=== PATIENT | female | born 1960 | race Caucasian/White ===

== ENCOUNTER 2024-05-27 18:02 | Inpatient (IN) ==
[2024-05-27 18:35] LABS: ABS Monocytes 1.3 10^3/uL (0.0-0.9); ABS Neutrophils 18.1 10^3/uL (1.5-7.6); ABS Nucleated RBC 0.01 10^3/ul; Hematocrit 45.2 % (35-45); Hemoglobin 15.1 g/dL (11.5-14.3); Lymphocyte % 5.1 %; Mean Corpuscular Hemoglobin 28.1 pg (27-33); Mean Corpuscular Hgb Conc 33.4 g/dL (31-36); Mean Corpuscular Volume 84.2 fL (80-97); Mean Platelet Volume 8.6 fL (7.5-11.2); Platelet Count 219 10^3/uL (150-450); Red Blood Count 5.37 10^6/uL (3.63-4.92); White Blood Count 20.5 10^3/uL (3.8-11.8)
[2024-05-27 18:47] LABS: Activated Partial Thrombo Time 28.3 seconds (26.0-38.0); INR 1.05 (0.85-1.14)
[2024-05-27] MEDS ORDERED: niCARdipine 0.1MG/ML IVPREMIX 20 MG/200 ML BAG IV ONE (18:56)
[2024-05-27] MEDS: niCARdipine 0.1MG/ML IVPREMIX 20 MG/200 ML BAG IV SCH (19:01)
[2024-05-27 19:22] LABS: Albumin 4.4 g/dL (3.2-5.2); Albumin/Globulin Ratio 1.5 (1-3); Creatinine, Serum 1.95 mg/dL (0.51-0.95); Direct Bilirubin 0.2 mg/dL (0.03-0.18); Indirect Bilirubin 1.2 mg/dL (0.3-1.0); Potassium 4.1 mmol/L (3.5-5.0); Total Bilirubin 1.4 mg/dL (0.2-1.0); Total Protein 7.4 g/dL (6.4-8.9); eGFR CKD-EPI 28.1 (>60)
[2024-05-27] MEDS: Piperacillin/Tazobac 3.375 BAG 3.375 GM/100 ML BAG IV ONE (19:59)
[2024-05-27 20:02] LABS: TSH Ultra Thyroid Stim Horm 1.36 mcIU/mL (0.34-5.60)
[2024-05-27 20:04] LABS: Free T4 1.09 ng/dL (0.61-1.12)
[2024-05-27 20:27] LABS: Urine Appearance Turbid; Urine Bacteria Absent /HPF (Absent); Urine Bilirubin Negative (Negative); Urine Blood 3+ (Negative); Urine Color Yellow; Urine Glucose Trace (Negative); Urine Ketones Negative (Negative); Urine Nitrite Negative (Negative); Urine Protein 3+ (>=300 mg/dL) (Negative); Urine Red Blood Cell 3+(>10/hpf) /HPF (0-Trace); Urine Specific Gravity >1.050 (1.002-1.030); Urine Urobilinogen Negative (Negative); Urine White Blood Cell 2+(11-20/hpf) /HPF (0-Trace)
[2024-05-27 20:42] LABS: CRP High Sensitivity 51.17 mg/L (<2.00)
[2024-05-27] MEDS: Vancomycin 2,000 MG in NS 0.9% 500 ml BAG 500 ML IVPB ONE (21:01)
[2024-05-27] MEDS: Lactated Ringers 1000 ml BAG 1,000 ML IV ONE (21:06)
[2024-05-27] MEDS: Hyaluronidase HUMAN 15 UNIT in Sodium Chloride 0.9% 0.9 ML INTRADERM ONE (22:02)
[2024-05-27 22:10] LABS: Prolactin 10.9 ng/mL (1.0-25.0)
[2024-05-27] MEDS ORDERED: Sulfur Hexaflouride MICROSPHR 25 MG VIAL IV PRN (22:33)
[2024-05-27] MEDS ORDERED: Albuterol HFA INHALER 8 gm MDI INH PRN (22:40)
[2024-05-27 23:53] LABS: Folate 5.95 ng/mL (5.90-24.80)
[2024-05-28] MEDS: Heparin 5000 UNITS/ML 1 mL VIAL SUBCUT SCH (01:01)
[2024-05-28] MEDS: Propofol 10 mg/ml 100 ML BTL 1,000 MG/100 ML BTL IV SCH (01:50)
[2024-05-28] MEDS ORDERED: cefTRIAXone 2 GM ADDV.VIAL 2 GM in NS 0.9% 100 ml BAG 100 ML IV SCH (02:06)
[2024-05-28] MEDS: Propofol 10 mg/ml 100 ML BTL 1,000 MG/100 ML BTL ONE (02:10)
[2024-05-28] MEDS: LORazepam 2 mg VIAL 1 ml ONE (02:11)
[2024-05-28] MEDS: Rocuronium 50 mg VIAL 10 mg/ml 5 ml VIAL (50 mg) ONE (02:13)
[2024-05-28] MEDS: Succinylcholine 200 mg VIAL 20 mg/ml 10 ml VIAL (200 mg) ONE (02:13)
[2024-05-28] MEDS: Succinylcholine 200 mg VIAL 20 mg/ml 10 ml VIAL (200 mg) IV ONE (02:14)
[2024-05-28] MEDS: Etomidate 20 mg/10 ml 2 MG/ML 10 ml VIAL IV ONE (02:14)
[2024-05-28] MEDS ORDERED: Lorazepam PYXIS KEY PRN (02:26)
[2024-05-28] MEDS: LORazepam 2 mg VIAL 1 ml IV PUSH ONE ×2 (02:30→04:05)
[2024-05-28 02:44] LABS: PCO2 Arterial 31 mmHg (35-45); PO2 Arterial 87 mmHg (80-100)
[2024-05-28] MEDS: Ampicillin ADVAN 2 GM in NS 0.9% 100 ml BAG 100 ML IVPB SCH (02:59)
[2024-05-28] MEDS ORDERED: Vancomycin per Pharmacy 1 EA NOTE FOLLOW UP SCH (03:00)
[2024-05-28] MEDS: Chlorhexidine MOUTHWASH 0.12% 15 ML UDC TOPICAL SCH (03:03)
[2024-05-28 03:05] LABS: Urine Benzodiazepine Screen None Detected (None Detect); Urine Cannabinoids Screen None Detected (None Detect); Urine Opiates Screen None Detected (None Detect)
[2024-05-28] MEDS: cefTRIAXone 2 gm/50 mL D5W 2 GM/50 ML BAG IV SCH (03:12)
[2024-05-28 03:15] LABS: Calcium 8.7 mg/dL (8.6-10.3); Creatinine, Serum 2.03 mg/dL (0.51-0.95); Magnesium 2.1 mg/dL (1.9-2.7); Phosphorus 3.5 mg/dL (2.5-5.0); Potassium 3.8 mmol/L (3.5-5.0); eGFR CKD-EPI 26.7 (>60)
[2024-05-28 03:43] LABS: Hematocrit 38.5 % (35-45); Hemoglobin 12.7 g/dL (11.5-14.3); Mean Platelet Volume 9.4 fL (7.5-11.2); Platelet Count 206 10^3/uL (150-450); Red Blood Count 4.52 10^6/uL (3.63-4.92); White Blood Count 23.3 10^3/uL (3.8-11.8)
[2024-05-28 04:12] LABS: ABS Lymphocytes 0.7 10^3/uL (1.0-4.8); ABS Neutrophils 21.7 10^3/uL (1.5-7.6); ABS Nucleated RBC 0.01 10^3/ul
[2024-05-28] MEDS: Lactated Ringers 1000 ml BAG 1,000 ML IV ONE (04:27)
[2024-05-28 05:56] LABS: ABS Lymphocytes 0.9 10^3/uL (1.0-4.8); ABS Monocytes 1.2 10^3/uL (0.0-0.9); ABS Neutrophils 16.9 10^3/uL (1.5-7.6); Hematocrit 37.9 % (35-45); Hemoglobin 12.5 g/dL (11.5-14.3); Lymphocyte % 4.6 %; Mean Corpuscular Hemoglobin 27.9 pg (27-33); Mean Corpuscular Hgb Conc 32.9 g/dL (31-36); Mean Corpuscular Volume 84.8 fL (80-97); Mean Platelet Volume 8.9 fL (7.5-11.2); Platelet Count 161 10^3/uL (150-450); Red Blood Count 4.47 10^6/uL (3.63-4.92); Red Cell Distribution Width 15.1 % (12-17)
[2024-05-28 06:34] LABS: Calcium 8.5 mg/dL (8.6-10.3); Creatinine, Serum 1.79 mg/dL (0.51-0.95); Phosphorus 3.1 mg/dL (2.5-5.0); Potassium 3.4 mmol/L (3.5-5.0); eGFR CKD-EPI 31.1 (>60)
[2024-05-28] MEDS: Potassium Chloride LIQUID 20 MEQ/15 ML LIQUID NG TUBE ONE (08:10)
[2024-05-28] MEDS: Pantoprazole VIAL 40 MG VIAL IV SCH (08:10)
[2024-05-28] MEDS ORDERED: cefTRIAXone 1 gm/50 mL D5W 1 GM/50 ML BAG IV SCH (09:00)
[2024-05-28] MEDS: Acyclovir IV 600 MG in NS 0.9% 250 ml 250 ML IVPB SCH (09:05)
[2024-05-28] MEDS: fentaNYL 100 mcg/2 ml 50 MCG/ML VIAL IV SLOW PU PRN (09:45)
[2024-05-28] MEDS: Norepinephrine 4 MG/250mL D5W 4,000 MCG/250 ML BAG IV ONE (11:37)
[2024-05-28] MEDS: levETIRAcetam 1000MG IVPREMIX 1,000 MG/100 ML BAG IVPB SCH (12:51)
[2024-05-28] MEDS: Heparin DRIP 25,000 UNITS BAG 25,000 UNITS/250 ML BAG IV SCH (13:47)
[2024-05-28] MEDS: Lactated Ringers 1000 ml BAG 1,000 ML IV SCH (16:24)
[2024-05-28] MEDS: Vancomycin 1000 MG in NS 0.9% 250 ML IVPB SCH (18:29)
[2024-05-29] MEDS: Lactated Ringers 1000 ml BAG 1,000 ML IV SCH (03:28)
[2024-05-29 04:40] LABS: ABS Eosinophils 0.1 10^3/uL (0.0-0.5); ABS Lymphocytes 1.2 10^3/uL (1.0-4.8); ABS Monocytes 1.1 10^3/uL (0.0-0.9); ABS Neutrophils 12.8 10^3/uL (1.5-7.6); ABS Nucleated RBC 0.01 10^3/ul; Eosinophil % 0.7 %; Hemoglobin 9.2 g/dL (11.5-14.3); Lymphocyte % 7.8 %; Mean Corpuscular Hemoglobin 28.4 pg (27-33); Mean Corpuscular Hgb Conc 32.9 g/dL (31-36); Mean Corpuscular Volume 86.4 fL (80-97); Mean Platelet Volume 9.2 fL (7.5-11.2); Nucleated Red Blood Cells % 0.1 %/100WBC (0.0-0.8); Platelet Count 119 10^3/uL (150-450); Red Blood Count 3.24 10^6/uL (3.63-4.92); Red Cell Distribution Width 15.5 % (12-17); White Blood Count 15.2 10^3/uL (3.8-11.8)
[2024-05-29 04:54] LABS: Calcium 7.6 mg/dL (8.6-10.3); Creatinine, Serum 1.62 mg/dL (0.51-0.95); Magnesium 1.8 mg/dL (1.9-2.7); Potassium 3.3 mmol/L (3.5-5.0)
[2024-05-29] MEDS: Magnesium Sulfate 2 gm BAG 2 GM/50 ML BAG IVPB ONE (12:03)
[2024-05-29] MEDS: KCL 20 MEQ/100 ML IVPREMIX 20 MEQ/100 ML BAG IV SCH (12:09)
[2024-05-29 15:23] LABS: Hemoglobin 9.2 g/dL (11.5-14.3); Red Blood Count 3.04 10^6/uL (3.63-4.92); White Blood Count 14.4 10^3/uL (3.8-11.8)
[2024-05-29 15:24] LABS: Hematocrit 25.8 % (35-45); Mean Corpuscular Hemoglobin 30.3 pg (27-33); Mean Corpuscular Hgb Conc 35.8 g/dL (31-36); Mean Corpuscular Volume 84.7 fL (80-97); Mean Platelet Volume 9.5 fL (7.5-11.2); Platelet Count 126 10^3/uL (150-450); Red Cell Distribution Width 15.1 % (12-17)
[2024-05-29] MEDS: Furosemide 40 mg/4 ml IV VIAL IV SLOW PU ONE (15:43)
[2024-05-29] MEDS: Labetalol IV 5 MG/ML 20 ml VIAL IV PUSH ONE (19:52)
[2024-05-29] MEDS: Bacitracin OINTMENT TUBE TOPICAL PRN (23:56)
[2024-05-30 05:11] LABS: ABS Basophils 0.1 10^3/uL (0.0-0.1); ABS Eosinophils 0.3 10^3/uL (0.0-0.5); ABS Lymphocytes 1.1 10^3/uL (1.0-4.8); ABS Monocytes 0.6 10^3/uL (0.0-0.9); ABS Neutrophils 8.7 10^3/uL (1.5-7.6); Hematocrit 27.2 % (35-45); Hemoglobin 9.3 g/dL (11.5-14.3); Lymphocyte % 9.8 %; Mean Corpuscular Hemoglobin 29.1 pg (27-33); Mean Corpuscular Volume 85.5 fL (80-97); Platelet Count 128 10^3/uL (150-450); Red Blood Count 3.18 10^6/uL (3.63-4.92); Red Cell Distribution Width 15.2 % (12-17); White Blood Count 10.8 10^3/uL (3.8-11.8)
[2024-05-30 05:30] LABS: Anion Gap 8 mmol/L (2-16); Blood Urea Nitrogen 22 mg/dL (6-24); CO2 Carbon Dioxide 27 mmol/L (22-32); Calcium 8.1 mg/dL (8.6-10.3); Chloride 103 mmol/L (101-111); Creatinine, Serum 1.57 mg/dL (0.51-0.95); Glucose 187 mg/dL (70-100); Magnesium 2.2 mg/dL (1.9-2.7); Sodium 138 mmol/L (135-145); eGFR CKD-EPI 36.4 (>60)
[2024-05-30 05:54] LABS: Potassium, Whole Blood 3.2 mmol/L (3.4-4.5)
[2024-05-30 08:04] LABS: ALT 9 U/L (7-52); Albumin 2.9 g/dL (3.2-5.2); Albumin/Globulin Ratio 1.1 (1-3); Alkaline Phosphatase 55 U/L (35-149); Globulin 2.7 g/dL (2-4); Total Bilirubin 0.3 mg/dL (0.2-1.0); Total Protein 5.6 g/dL (6.4-8.9)
[2024-05-30] MEDS: KCL 10 MEQ/50 ML IVPREMIX 10 MEQ/50 ML BAG IV SCH (09:29)
[2024-05-30] MEDS: Furosemide 40 mg/4 ml IV VIAL IV SLOW PU ONE (12:33)
[2024-05-30] MEDS: Potassium Chloride LIQUID 20 MEQ/15 ML LIQUID PO ONE (12:41)
[2024-05-30 17:26] LABS: Anion Gap 10 mmol/L (2-16); Blood Urea Nitrogen 21 mg/dL (6-24); CO2 Carbon Dioxide 24 mmol/L (22-32); Calcium 7.8 mg/dL (8.6-10.3); Chloride 103 mmol/L (101-111); Creatinine, Serum 1.56 mg/dL (0.51-0.95); Glucose 151 mg/dL (70-100); Sodium 137 mmol/L (135-145); Vancomycin Trough 15.4 mcg/mL; eGFR CKD-EPI 36.7 (>60)
[2024-05-30] MEDS: Vancomycin Trough Check NOTE FOLLOW UP ONE (18:15)
[2024-05-30 21:46] LABS: Direct Bilirubin Redraw 0.1 mg/dL (0.1-0.5); Magnesium 2.1 mg/dL (1.9-2.7)
[2024-05-30 21:55] LABS: Vancomycin Trough 38.6 mcg/mL
[2024-05-30] MEDS: fentaNYL INFUSION 50 mcg/mL VL 2,500 MCG/50 ML VIAL IV SCH (23:14)
[2024-05-31] MEDS: fentaNYL INFUSION 50 mcg/mL VL 2,500 MCG/50 ML VIAL IV SCH (00:03)
[2024-05-31] MEDS: hydrALAZINE 20 mg/ml 1 ML Vial IV IV SLOW PU PRN (03:03)
[2024-05-31 06:42] LABS: ABS Eosinophils 0.4 10^3/uL (0.0-0.5); ABS Lymphocytes 0.9 10^3/uL (1.0-4.8); ABS Monocytes 0.6 10^3/uL (0.0-0.9); Eosinophil % 4.6 %; Hematocrit 24.8 % (35-45); Hemoglobin 8.6 g/dL (11.5-14.3); Lymphocyte % 11.8 %; Mean Corpuscular Hemoglobin 29.6 pg (27-33); Mean Corpuscular Hgb Conc 34.6 g/dL (31-36); Mean Corpuscular Volume 85.5 fL (80-97); Mean Platelet Volume 9.4 fL (7.5-11.2); Nucleated Red Blood Cells % 0.1 %/100WBC (0.0-0.8); Platelet Count 123 10^3/uL (150-450); Red Blood Count 2.91 10^6/uL (3.63-4.92); Red Cell Distribution Width 15.1 % (12-17); White Blood Count 7.9 10^3/uL (3.8-11.8)
[2024-05-31 07:43] LABS: Calcium 7.7 mg/dL (8.6-10.3); Creatinine, Serum 1.5 mg/dL (0.51-0.95); Potassium 3.8 mmol/L (3.5-5.0); eGFR CKD-EPI 38.4 (>60)
[2024-05-31] MEDS: Furosemide 20 mg/2 ml IV VIAL IV SLOW PU ONE ×2 (11:48→18:10)
[2024-05-31] MEDS: Iodixanol 320 (CONTRAST) 100 ML SDV IV ONE (13:14)
[2024-05-31 16:42] LABS: Calcium 8.1 mg/dL (8.6-10.3); Creatinine, Serum 1.49 mg/dL (0.51-0.95); Potassium 3.7 mmol/L (3.5-5.0); eGFR CKD-EPI 38.7 (>60)
[2024-05-31] MEDS: Potassium Chloride LIQUID 20 MEQ/15 ML LIQUID PO ONE (18:10)
[2024-05-31] MEDS: Saline FLUSH-CENTRAL 10 ML SYRINGE CENT\\PICC SCH (18:10)
[2024-05-31] MEDS: KCL 10 MEQ/50 ML IVPREMIX 10 MEQ/50 ML BAG IV ONE (18:10)
[2024-05-31] MEDS: fentaNYL 100 mcg/2 ml 50 MCG/ML VIAL IV SLOW PU PRN (19:11)
[2024-06-01 05:59] LABS: ABS Eosinophils 0.3 10^3/uL (0.0-0.5); ABS Monocytes 0.8 10^3/uL (0.0-0.9); ABS Neutrophils 7.2 10^3/uL (1.5-7.6); Eosinophil % 3.3 %; Hematocrit 29.7 % (35-45); Hemoglobin 9.9 g/dL (11.5-14.3); Lymphocyte % 10.8 %; Mean Corpuscular Hemoglobin 28.7 pg (27-33); Mean Corpuscular Hgb Conc 33.4 g/dL (31-36); Mean Corpuscular Volume 85.7 fL (80-97); Mean Platelet Volume 8.5 fL (7.5-11.2); Platelet Count 168 10^3/uL (150-450); Red Blood Count 3.46 10^6/uL (3.63-4.92); Red Cell Distribution Width 15.2 % (12-17); White Blood Count 9.4 10^3/uL (3.8-11.8)
[2024-06-01 07:49] LABS: Albumin 3.2 g/dL (3.2-5.2); Albumin/Globulin Ratio 1.3 (1-3); Calcium 8.5 mg/dL (8.6-10.3); Creatinine, Serum 1.54 mg/dL (0.51-0.95); Direct Bilirubin 0.1 mg/dL (0.03-0.18); Globulin 2.5 g/dL (2-4); Indirect Bilirubin 0.2 mg/dL (0.3-1.0); Potassium 3.8 mmol/L (3.5-5.0); Total Bilirubin 0.3 mg/dL (0.2-1.0); Total Protein 5.7 g/dL (6.4-8.9); eGFR CKD-EPI 37.2 (>60)
[2024-06-01] MEDS: KCL 20 MEQ/100 ML IVPREMIX 20 MEQ/100 ML BAG IV SCH (08:09)
[2024-06-01] MEDS: Furosemide 40 mg/4 ml IV VIAL IV SLOW PU ONE (09:27)
[2024-06-01 10:04] LABS: TSH Ultra Thyroid Stim Horm 1.6 mcIU/mL (0.34-5.60)
[2024-06-01 10:06] LABS: Free T4 1.01 ng/dL (0.61-1.12)
[2024-06-01 16:43] LABS: Calcium 8.2 mg/dL (8.6-10.3); Creatinine, Serum 1.5 mg/dL (0.51-0.95); Potassium 3.9 mmol/L (3.5-5.0); eGFR CKD-EPI 38.4 (>60)
[2024-06-01] MEDS: KCL 10 MEQ/50 ML IVPREMIX 10 MEQ/50 ML BAG IV ONE (17:14)
[2024-06-01 18:07] LABS: Magnesium 2.1 mg/dL (1.9-2.7)
[2024-06-02 05:06] LABS: ABS Eosinophils 0.3 10^3/uL (0.0-0.5); ABS Lymphocytes 1.2 10^3/uL (1.0-4.8); ABS Monocytes 0.9 10^3/uL (0.0-0.9); ABS Nucleated RBC 0.01 10^3/ul; Eosinophil % 3.6 %; Lymphocyte % 12.2 %; Mean Corpuscular Hemoglobin 29.4 pg (27-33); Mean Corpuscular Hgb Conc 34.6 g/dL (31-36); Mean Platelet Volume 8.8 fL (7.5-11.2); Nucleated Red Blood Cells % 0.1 %/100WBC (0.0-0.8); Platelet Count 172 10^3/uL (150-450); Red Blood Count 3.05 10^6/uL (3.63-4.92); Red Cell Distribution Width 14.8 % (12-17); White Blood Count 9.4 10^3/uL (3.8-11.8)
[2024-06-02 06:29] LABS: Calcium 8.2 mg/dL (8.6-10.3); Creatinine, Serum 1.47 mg/dL (0.51-0.95); eGFR CKD-EPI 39.4 (>60)
[2024-06-02 08:03] LABS: Magnesium 2.2 mg/dL (1.9-2.7)
[2024-06-02] MEDS: Sodium Chloride(INHALANT) 3% 4 ML NEB.SOLN INH SCH (09:57)
[2024-06-02] MEDS: Furosemide 40 mg/4 ml IV VIAL IV SLOW PU ONE (10:38)
[2024-06-02] MEDS ORDERED: Vancomycin Trough Check NOTE FOLLOW UP ONE (17:30)
[2024-06-02 18:14] LABS: Calcium 8.6 mg/dL (8.6-10.3); Creatinine, Serum 1.56 mg/dL (0.51-0.95); Magnesium 2.3 mg/dL (1.9-2.7); eGFR CKD-EPI 36.7 (>60)
[2024-06-02] MEDS: Midazolam 5 mg/5 ml VIAL 1 mg/ml 5 ml VIAL (5 mg) IV SLOW PU ONE (21:30)
[2024-06-02] MEDS: Midazolam 5 mg/5 ml VIAL 1 mg/ml 5 ml VIAL (5 mg) ONE (21:37)
[2024-06-03] MEDS: Labetalol IV 5 MG/ML 20 ml VIAL IV PUSH ONE (00:11)
[2024-06-03] MEDS: Labetalol IV 5 MG/ML 20 ml VIAL ONE (00:45)
[2024-06-03 04:42] LABS: ABS Eosinophils 0.3 10^3/uL (0.0-0.5); ABS Lymphocytes 1.2 10^3/uL (1.0-4.8); ABS Neutrophils 7.7 10^3/uL (1.5-7.6); Eosinophil % 2.8 %; Hematocrit 26.1 % (35-45); Hemoglobin 8.8 g/dL (11.5-14.3); Lymphocyte % 11.4 %; Mean Corpuscular Hemoglobin 28.7 pg (27-33); Mean Corpuscular Hgb Conc 33.5 g/dL (31-36); Mean Corpuscular Volume 85.6 fL (80-97); Mean Platelet Volume 9.1 fL (7.5-11.2); Platelet Count 202 10^3/uL (150-450); Red Blood Count 3.05 10^6/uL (3.63-4.92); Red Cell Distribution Width 14.8 % (12-17); White Blood Count 10.1 10^3/uL (3.8-11.8)
[2024-06-03 06:31] LABS: Calcium 8.3 mg/dL (8.6-10.3); Creatinine, Serum 1.55 mg/dL (0.51-0.95); Potassium 3.8 mmol/L (3.5-5.0)
[2024-06-03 07:52] LABS: Magnesium 2.4 mg/dL (1.9-2.7)
[2024-06-03] MEDS ORDERED: Midazolam 5 mg/5 ml VIAL 1 mg/ml 5 ml VIAL (5 mg) ONE (10:39)
[2024-06-03] MEDS ORDERED: fentaNYL 100 mcg/2 ml 50 MCG/ML VIAL ONE (10:39)
[2024-06-03] MEDS ORDERED: Flumazenil 0.5 mg/5 ml 0.1 MG/ML 5 ml VIAL ONE (10:39)
[2024-06-03] MEDS ORDERED: Naloxone 0.4 mg VIAL 0.4 mg/ml 1 ml VIAL ONE (10:39)
[2024-06-03] MEDS: NS 0.9% 1000 ml BAG 1,000 ML IV ONE (11:44)
[2024-06-03] MEDS: fentaNYL 100 mcg/2 ml 50 MCG/ML VIAL IV SLOW PU ONE (11:44)
[2024-06-03] MEDS: Midazolam 10 mg/10 ml VIAL 1 mg/ml 10 ml VIAL (10 mg) IV SLOW PU ONE (11:45)
[2024-06-04 04:49] LABS: Hematocrit 24.1 % (35-45); Hemoglobin 8.2 g/dL (11.5-14.3); Mean Corpuscular Hemoglobin 29.4 pg (27-33); Mean Corpuscular Hgb Conc 33.9 g/dL (31-36); Mean Corpuscular Volume 86.5 fL (80-97); Mean Platelet Volume 8.9 fL (7.5-11.2); Platelet Count 212 10^3/uL (150-450); Red Blood Count 2.79 10^6/uL (3.63-4.92); Red Cell Distribution Width 14.5 % (12-17); White Blood Count 11.5 10^3/uL (3.8-11.8)
[2024-06-04 05:54] LABS: ABS Eosinophils 0.3 10^3/uL (0.0-0.5); ABS Lymphocytes 1.2 10^3/uL (1.0-4.8); ABS Neutrophils 8.9 10^3/uL (1.5-7.6); Lymphocyte % 10.3 %
[2024-06-04 06:01] LABS: Creatinine, Serum 1.38 mg/dL (0.51-0.95); Magnesium 2.5 mg/dL (1.9-2.7); eGFR CKD-EPI 42.5 (>60)
[2024-06-04] MEDS ORDERED: Dextrose 50% Syringe 50 ml 25 GM/50 ML SYRINGE IV PUSH PRN (17:12)
[2024-06-05] MEDS: fentaNYL 100 mcg/2 ml 50 MCG/ML VIAL IV SLOW PU PRN (00:36)
[2024-06-05 05:17] LABS: Hematocrit 20.9 % (35-45); Mean Corpuscular Hemoglobin 28.8 pg (27-33); Mean Corpuscular Hgb Conc 33.3 g/dL (31-36); Mean Corpuscular Volume 86.5 fL (80-97); Mean Platelet Volume 8.6 fL (7.5-11.2); Platelet Count 218 10^3/uL (150-450); Red Blood Count 2.42 10^6/uL (3.63-4.92); Red Cell Distribution Width 14.5 % (12-17); White Blood Count 11.6 10^3/uL (3.8-11.8)
[2024-06-05 06:25] LABS: ABS Eosinophils 0.3 10^3/uL (0.0-0.5); ABS Lymphocytes 1.1 10^3/uL (1.0-4.8); ABS Neutrophils 9.2 10^3/uL (1.5-7.6); Anisocytosis 1+; Eosinophil % 2.5 %; Lymphocyte % 9.9 %; Polychromasia 1+
[2024-06-05 06:49] LABS: Calcium 8.4 mg/dL (8.6-10.3); Creatinine, Serum 1.3 mg/dL (0.51-0.95); Magnesium 2.5 mg/dL (1.9-2.7); Potassium 4.1 mmol/L (3.5-5.0); eGFR CKD-EPI 45.6 (>60)
[2024-06-05] MEDS: Morphine 2 MG/ML SYRINGE IV ONE ×2 (17:10→18:00)
[2024-06-05] MEDS: Morphine 2 MG/ML SYRINGE ONE (17:11)
[2024-06-05] MEDS: Acetaminophen IV 1 GM/100ML 1,000 MG/100 ML BAG IV ONE (17:22)
[2024-06-05 19:48] LABS: Hematocrit 20.5 % (35-45); Hemoglobin 6.8 g/dL (11.5-14.3)
[2024-06-06 04:07] LABS: Hematocrit 22.1 % (35-45); Hemoglobin 7.5 g/dL (11.5-14.3); Mean Corpuscular Hemoglobin 29.7 pg (27-33); Mean Corpuscular Hgb Conc 34.1 g/dL (31-36); Mean Corpuscular Volume 87.1 fL (80-97); Mean Platelet Volume 8.5 fL (7.5-11.2); Platelet Count 227 10^3/uL (150-450); Red Blood Count 2.54 10^6/uL (3.63-4.92); Red Cell Distribution Width 14.5 % (12-17)
[2024-06-06 04:31] LABS: ABS Basophils 0.1 10^3/uL (0.0-0.1); ABS Eosinophils 0.2 10^3/uL (0.0-0.5); ABS Lymphocytes 1.1 10^3/uL (1.0-4.8); ABS Neutrophils 12.7 10^3/uL (1.5-7.6); ABS Nucleated RBC 0.01 10^3/ul; Eosinophil % 1.5 %; Lymphocyte % 7.2 %; Nucleated Red Blood Cells % 0.1 %/100WBC (0.0-0.8)
[2024-06-06 04:32] LABS: Anisocytosis 1+; Polychromasia 1+
[2024-06-06 05:16] LABS: Calcium 8.4 mg/dL (8.6-10.3); Creatinine, Serum 1.11 mg/dL (0.51-0.95); Magnesium 2.4 mg/dL (1.9-2.7); Potassium 4.3 mmol/L (3.5-5.0); eGFR CKD-EPI 55.2 (>60)
[2024-06-06] MEDS ORDERED: Naloxone Nasal Spray 4 MG/0.1 ML NASAL.SPR INTRANASAL PRN (12:44)
[2024-06-06 14:04] LABS: PCO2 Arterial 42 mmHg (35-45); PO2 Arterial 123 mmHg (80-100)
[2024-06-06] MEDS: Iodixanol (CONTRAST) 320 MG/ML 100 ML SDV IV ONE (14:08)
[2024-06-06 15:25] LABS: C Reactive Protein 131.03 mg/L (<8.01)
[2024-06-06 16:24] LABS: Erythrocyte Sed Rate 37 mm/Hr (0-29)
[2024-06-06 18:52] LABS: Hematocrit 20.8 % (35-45); Hemoglobin 6.8 g/dL (11.5-14.3)
[2024-06-06] MEDS: Amoxicillin/Clavul ES ORALSYR 120 MG/ML (600 mg/5 ml) PO SCH (20:44)
[2024-06-07 01:37] LABS: Hematocrit 23.2 % (35-45); Hemoglobin 7.6 g/dL (11.5-14.3)
[2024-06-07 05:07] LABS: ABS Eosinophils 0.3 10^3/uL (0.0-0.5); ABS Lymphocytes 1.2 10^3/uL (1.0-4.8); ABS Monocytes 1.1 10^3/uL (0.0-0.9); ABS Neutrophils 15.9 10^3/uL (1.5-7.6); Eosinophil % 1.4 %; Hematocrit 23.3 % (35-45); Hemoglobin 7.9 g/dL (11.5-14.3); Lymphocyte % 6.6 %; Mean Corpuscular Hemoglobin 30.1 pg (27-33); Mean Corpuscular Hgb Conc 34.1 g/dL (31-36); Mean Corpuscular Volume 88.4 fL (80-97); Mean Platelet Volume 8.5 fL (7.5-11.2); Platelet Count 248 10^3/uL (150-450); Red Blood Count 2.63 10^6/uL (3.63-4.92); Red Cell Distribution Width 14.8 % (12-17); White Blood Count 18.6 10^3/uL (3.8-11.8)
[2024-06-07 05:19] LABS: Calcium 8.6 mg/dL (8.6-10.3); Creatinine, Serum 1.12 mg/dL (0.51-0.95); Potassium 4.6 mmol/L (3.5-5.0); eGFR CKD-EPI 54.6 (>60)
[2024-06-07] MEDS ORDERED: Senna TAB 8.6 mg TAB PO PRN (08:21)
[2024-06-07] MEDS: Polyethylene Glycol 3350 17 GM PACKET PO PRN (08:24)
[2024-06-07] MEDS: Pantoprazole VIAL 40 MG VIAL IV SCH (08:25)
[2024-06-07] MEDS: cefTRIAXone 1 gm/50 mL D5W 1 GM/50 ML BAG IV SCH (08:45)
[2024-06-07 09:16] LABS: Folate 6.74 ng/mL (5.90-24.80)
[2024-06-07] MEDS: ZOSYN 3.375 GM x ONE DOSE over 30 miuntes IV (09:47)
[2024-06-07] MEDS ORDERED: Zosyn per Pharmacy NOTE FOLLOW UP SCH (10:00)
[2024-06-07] MEDS: Azithromycin 500 mg/250 ml NS 500 MG/250 ML BAG IVPB SCH (10:18)
[2024-06-07 11:02] LABS: INR 1.1 (0.85-1.14)
[2024-06-07 11:17] LABS: Urine Appearance Clear; Urine Bilirubin Negative (Negative); Urine Blood 1+ (Negative); Urine Color Light-Yellow; Urine Glucose Negative (Negative); Urine Ketones Negative (Negative); Urine Nitrite Negative (Negative); Urine Protein 1+ (>=30 mg/dL) (Negative); Urine Specific Gravity 1.023 (1.002-1.030); Urine Urobilinogen Negative (Negative); Urine pH 5.5 (5.0-8.0)
[2024-06-07 12:22] LABS: Budding Yeast Present /HPF (Absent); Urine Bacteria Absent /HPF (Absent); Urine Red Blood Cell Trace(0-2/hpf) /HPF (0-Trace); Urine White Blood Cell Trace(0-5/hpf) /HPF (0-Trace)
[2024-06-07] MEDS: ZOSYN 3.375 GM Q8H per EXTENDED INFUSION IV SCH (13:15)
[2024-06-07] MEDS: Gadoteridol (CONTRAST) 279.3 MG/ML 10 ML IV ONE (16:10)
[2024-06-07 17:44] LABS: Hematocrit 22.1 % (35-45); Hemoglobin 7.3 g/dL (11.5-14.3)
[2024-06-07] MEDS: Heparin DRIP 25,000 UNITS BAG 25,000 UNITS/250 ML BAG IV SCH (19:25)
[2024-06-07] MEDS: Heparin 5000 UNITS/ML 1 mL VIAL IV SCH (19:31)
[2024-06-08 01:01] LABS: Hematocrit 20.4 % (35-45); Hemoglobin 6.6 g/dL (11.5-14.3)
[2024-06-08 04:21] LABS: ABS Eosinophils 0.3 10^3/uL (0.0-0.5); ABS Lymphocytes 1.4 10^3/uL (1.0-4.8); ABS Monocytes 1.1 10^3/uL (0.0-0.9); ABS Neutrophils 14.9 10^3/uL (1.5-7.6); ABS Nucleated RBC 0.01 10^3/ul; Eosinophil % 1.6 %; Hematocrit 24.3 % (35-45); Hemoglobin 8.3 g/dL (11.5-14.3); Lymphocyte % 7.9 %; Mean Corpuscular Hemoglobin 29.9 pg (27-33); Mean Corpuscular Hgb Conc 34.2 g/dL (31-36); Mean Corpuscular Volume 87.5 fL (80-97); Mean Platelet Volume 8.4 fL (7.5-11.2); Nucleated Red Blood Cells % 0.1 %/100WBC (0.0-0.8); Platelet Count 246 10^3/uL (150-450); Red Blood Count 2.77 10^6/uL (3.63-4.92); Red Cell Distribution Width 15.1 % (12-17); White Blood Count 17.7 10^3/uL (3.8-11.8)
[2024-06-08 04:37] LABS: Calcium 8.7 mg/dL (8.6-10.3); Creatinine, Serum 1.26 mg/dL (0.51-0.95); Potassium 4.5 mmol/L (3.5-5.0); eGFR CKD-EPI 47.4 (>60)
[2024-06-08] MEDS: Polyethylene Glycol 3350 17 GM PACKET PO SCH (07:54)
[2024-06-08] MEDS: Senna TAB 8.6 mg TAB PO SCH (07:57)
[2024-06-08] MEDS: Lidocaine 1% MPF 5 ML VIAL INJ ONE (13:45)
[2024-06-08] MEDS: Lactated Ringers 1000 ml BAG 500 ML IV ONE (13:49)
[2024-06-08] MEDS: Iodixanol (CONTRAST) 320 MG/ML 100 ML SDV IV ONE (15:05)
[2024-06-08 16:44] LABS: Hematocrit 23.2 % (35-45); Hemoglobin 7.9 g/dL (11.5-14.3)
[2024-06-09] LABS: Hematocrit 22.1 % (35-45); Hemoglobin 7.3 g/dL (11.5-14.3)
[2024-06-09] MEDS: Morphine 2 MG/ML SYRINGE IV ONE (02:21)
[2024-06-09] MEDS: Morphine 2 MG/ML SYRINGE ONE (04:12)
[2024-06-09 04:42] LABS: ABS Eosinophils 0.3 10^3/uL (0.0-0.5); ABS Lymphocytes 1.2 10^3/uL (1.0-4.8); ABS Monocytes 0.7 10^3/uL (0.0-0.9); ABS Neutrophils 10.5 10^3/uL (1.5-7.6); Eosinophil % 2.7 %; Hematocrit 22.5 % (35-45); Hemoglobin 7.4 g/dL (11.5-14.3); Lymphocyte % 9.3 %; Mean Corpuscular Hemoglobin 29.2 pg (27-33); Mean Corpuscular Volume 88.4 fL (80-97); Mean Platelet Volume 8.1 fL (7.5-11.2); Platelet Count 231 10^3/uL (150-450); Red Blood Count 2.55 10^6/uL (3.63-4.92); Red Cell Distribution Width 15.3 % (12-17); White Blood Count 12.7 10^3/uL (3.8-11.8)
[2024-06-09 05:03] LABS: Calcium 8.4 mg/dL (8.6-10.3); Creatinine, Serum 1.16 mg/dL (0.51-0.95); Magnesium 2.1 mg/dL (1.9-2.7); Potassium 4.4 mmol/L (3.5-5.0); eGFR CKD-EPI 52.3 (>60)
[2024-06-09 18:33] LABS: Albumin 2.8 g/dL (3.2-5.2); Albumin/Globulin Ratio 1.1 (1-3); Calcium 8.6 mg/dL (8.6-10.3); Creatinine, Serum 1.12 mg/dL (0.51-0.95); Globulin 2.5 g/dL (2-4); Potassium 4.5 mmol/L (3.5-5.0); Total Bilirubin 1.1 mg/dL (0.2-1.0); Total Protein 5.3 g/dL (6.4-8.9); eGFR CKD-EPI 54.6 (>60)
[2024-06-09 18:38] LABS: INR 1.17 (0.85-1.14)
[2024-06-09] MEDS: Heparin 5000 UNITS/ML 1 mL VIAL SUBCUT SCH (22:15)
[2024-06-09] MEDS: PEG 3000 GI LAVAGE 1 GALLON PO ONE (22:38)
[2024-06-09 23:36] LABS: Activated Partial Thrombo Time 24.8 seconds (26.0-38.0); INR 1.17 (0.85-1.14)
[2024-06-10] MEDS: Ondansetron 4 mg VIAL 2 MG/ML 2 ml VIAL IV PRN (04:22)
[2024-06-10 04:26] LABS: ABS Basophils 0.1 10^3/uL (0.0-0.1); ABS Eosinophils 0.3 10^3/uL (0.0-0.5); ABS Monocytes 0.7 10^3/uL (0.0-0.9); ABS Neutrophils 9.6 10^3/uL (1.5-7.6); ABS Nucleated RBC 0.01 10^3/ul; Eosinophil % 2.7 %; Hematocrit 22.8 % (35-45); Hemoglobin 7.8 g/dL (11.5-14.3); Lymphocyte % 8.9 %; Mean Corpuscular Hemoglobin 30.2 pg (27-33); Mean Corpuscular Hgb Conc 34.2 g/dL (31-36); Mean Corpuscular Volume 88.3 fL (80-97); Mean Platelet Volume 8.3 fL (7.5-11.2); Nucleated Red Blood Cells % 0.1 %/100WBC (0.0-0.8); Platelet Count 259 10^3/uL (150-450); Red Blood Count 2.59 10^6/uL (3.63-4.92); Red Cell Distribution Width 15.1 % (12-17); White Blood Count 11.8 10^3/uL (3.8-11.8)
[2024-06-10 04:46] LABS: Calcium 8.7 mg/dL (8.6-10.3); Creatinine, Serum 1.3 mg/dL (0.51-0.95); Magnesium 2.1 mg/dL (1.9-2.7); Potassium 4.6 mmol/L (3.5-5.0); eGFR CKD-EPI 45.6 (>60)
[2024-06-10] MEDS: Ondansetron 4 mg VIAL 2 MG/ML 2 ml VIAL ONE (05:02)
[2024-06-10] MEDS ORDERED: Heparin 5000 UNITS/ML 1 mL VIAL IV PRN (08:22)
[2024-06-10] MEDS: Heparin DRIP 25,000 UNITS BAG 25,000 UNITS/250 ML BAG IV SCH (10:24)
[2024-06-10] MEDS: PEG 3000 GI LAVAGE 1 GALLON PO ONE (10:26)
[2024-06-10] MEDS: Azithromycin 500 mg/250 ml NS 500 MG/250 ML BAG IVPB SCH (12:48)
[2024-06-10] MEDS ORDERED: fentaNYL 100 mcg/2 ml 50 MCG/ML VIAL ONE (14:05)
[2024-06-10] MEDS ORDERED: Midazolam 10 mg/10 ml VIAL 1 mg/ml 10 ml VIAL (10 mg) ONE (14:05)
[2024-06-10] MEDS: Midazolam 10 mg/10 ml VIAL 1 mg/ml 10 ml VIAL (10 mg) IV SLOW PU ONE (14:15)
[2024-06-10] MEDS ORDERED: Flumazenil 0.5 mg/5 ml 0.1 MG/ML 5 ml VIAL IV PRN (14:18)
[2024-06-10] MEDS ORDERED: Naloxone 0.4 mg VIAL 0.4 mg/ml 1 ml VIAL IV PUSH PRN (14:18)
[2024-06-10] MEDS: fentaNYL 100 mcg/2 ml 50 MCG/ML VIAL IV SLOW PU ONE (17:16)
[2024-06-10] MEDS: Ondansetron 4 mg VIAL 2 MG/ML 2 ml VIAL IV ONE (17:17)
[2024-06-10] MEDS: Lactated Ringers 1000 ml BAG 1,000 ML IV ONE (19:47)
[2024-06-11 05:11] LABS: Calcium 8.4 mg/dL (8.6-10.3); Creatinine, Serum 1.29 mg/dL (0.51-0.95); Potassium 4.3 mmol/L (3.5-5.0); eGFR CKD-EPI 46.1 (>60)
[2024-06-11 07:58] LABS: ABS Eosinophils 0.3 10^3/uL (0.0-0.5); ABS Lymphocytes 0.9 10^3/uL (1.0-4.8); ABS Monocytes 0.5 10^3/uL (0.0-0.9); ABS Neutrophils 6.9 10^3/uL (1.5-7.6); ABS Nucleated RBC 0.01 10^3/ul; Eosinophil % 3.5 %; Hematocrit 20.6 % (35-45); Hemoglobin 7.1 g/dL (11.5-14.3); Mean Corpuscular Hemoglobin 30.5 pg (27-33); Mean Corpuscular Hgb Conc 34.5 g/dL (31-36); Mean Corpuscular Volume 88.4 fL (80-97); Mean Platelet Volume 8.1 fL (7.5-11.2); Nucleated Red Blood Cells % 0.1 %/100WBC (0.0-0.8); Platelet Count 252 10^3/uL (150-450); Red Blood Count 2.33 10^6/uL (3.63-4.92); Red Cell Distribution Width 15.1 % (12-17); White Blood Count 8.7 10^3/uL (3.8-11.8)
[2024-06-11] MEDS ORDERED: Heparin 5000 UNITS/ML 1 mL VIAL IV SCH (12:00)
[2024-06-11 13:50] LABS: Hematocrit 22.1 % (35-45); Hemoglobin 7.3 g/dL (11.5-14.3)
[2024-06-11] MEDS: Heparin DRIP 25,000 UNITS BAG 25,000 UNITS/250 ML BAG IV SCH (14:39)
[2024-06-12 04:16] LABS: ABS Basophils 0.1 10^3/uL (0.0-0.1); ABS Eosinophils 0.2 10^3/uL (0.0-0.5); ABS Lymphocytes 0.9 10^3/uL (1.0-4.8); ABS Monocytes 0.5 10^3/uL (0.0-0.9); ABS Neutrophils 6.1 10^3/uL (1.5-7.6); Hematocrit 21.4 % (35-45); Hemoglobin 7.5 g/dL (11.5-14.3); Mean Corpuscular Hemoglobin 30.9 pg (27-33); Mean Corpuscular Volume 88.2 fL (80-97); Mean Platelet Volume 7.7 fL (7.5-11.2); Platelet Count 259 10^3/uL (150-450); Red Blood Count 2.42 10^6/uL (3.63-4.92); Red Cell Distribution Width 14.8 % (12-17); White Blood Count 7.8 10^3/uL (3.8-11.8)
[2024-06-12 04:48] LABS: Calcium 8.6 mg/dL (8.6-10.3); Creatinine, Serum 1.17 mg/dL (0.51-0.95); Potassium 3.9 mmol/L (3.5-5.0); eGFR CKD-EPI 51.8 (>60)
[2024-06-13 04:42] LABS: ABS Basophils 0.1 10^3/uL (0.0-0.1); ABS Eosinophils 0.2 10^3/uL (0.0-0.5); ABS Monocytes 0.5 10^3/uL (0.0-0.9); Eosinophil % 2.9 %; Hemoglobin 7.5 g/dL (11.5-14.3); Lymphocyte % 12.6 %; Mean Corpuscular Hemoglobin 30.3 pg (27-33); Mean Corpuscular Hgb Conc 34.2 g/dL (31-36); Mean Corpuscular Volume 88.5 fL (80-97); Platelet Count 267 10^3/uL (150-450); Red Blood Count 2.48 10^6/uL (3.63-4.92); Red Cell Distribution Width 15.3 % (12-17); White Blood Count 7.8 10^3/uL (3.8-11.8)
[2024-06-13 05:26] LABS: Calcium 8.7 mg/dL (8.6-10.3); Creatinine, Serum 1.2 mg/dL (0.51-0.95); Potassium 4.2 mmol/L (3.5-5.0); eGFR CKD-EPI 50.2 (>60)
[2024-06-13] MEDS: Senna TAB 8.6 mg TAB PO PRN (10:18)
[2024-06-13] MEDS ORDERED: Nystatin TOP POWDER 15 GM BTL TOPICAL PRN (13:10)
[2024-06-15 08:07] LABS: ABS Eosinophils 0.2 10^3/uL (0.0-0.5); ABS Lymphocytes 0.9 10^3/uL (1.0-4.8); ABS Monocytes 0.4 10^3/uL (0.0-0.9); ABS Neutrophils 6.2 10^3/uL (1.5-7.6); ABS Nucleated RBC 0.01 10^3/ul; Hematocrit 23.8 % (35-45); Hemoglobin 8.4 g/dL (11.5-14.3); Lymphocyte % 11.1 %; Mean Corpuscular Hemoglobin 31.2 pg (27-33); Mean Corpuscular Hgb Conc 35.1 g/dL (31-36); Mean Corpuscular Volume 88.7 fL (80-97); Mean Platelet Volume 7.9 fL (7.5-11.2); Nucleated Red Blood Cells % 0.1 %/100WBC (0.0-0.8); Platelet Count 277 10^3/uL (150-450); Red Blood Count 2.69 10^6/uL (3.63-4.92); Red Cell Distribution Width 16.1 % (12-17); White Blood Count 7.8 10^3/uL (3.8-11.8)
[2024-06-15 08:24] VITALS: BP 153/85
[2024-06-15 08:52] LABS: eGFR CKD-EPI 62.5 (>60)
== END 2024-06-15 09:00 | DRG 91 ==
LOC: ED 18:02 → ICU 22:27 → EDHOLD 22:27 → SUATTDRO 22:27 → ICU 22:49
PROVIDERS: ADMIT Hospitalist; ATTEND Internal Medicine